=== PATIENT | female | born 2000 | race African-American/Black ===

== ENCOUNTER 2020-07-04 07:47 | Outpatient (REF) | payer MEDICAID, SELFPAY | END 2020-07-04 07:48 | disposition home or self-care (01) | LOC: HO.HMGCLDS 07:47 | PROVIDERS: PCP Nurse Practitioner Family; Visit Provider Internal Medicine | DX: Z20.828 Contact with and (suspected) exposure to other viral communicable diseases (principal) | CPT/HCPCS: C9803; U0003 ==